=== PATIENT | male | born 1965 | race Caucasian/White ===

== ENCOUNTER 2020-09-15 09:36 | Emergency (ER) | payer MEDICARE, OTHER ==
[~2020-09-15] VITALS: Ht 185.4 cm; Wt 96.8 kg
[~2020-09-15 09:36] MED LIST: LACT10SO32 PO; PANT40TA54 PO
[2020-09-15 10:24] VITALS: BP 124/79
[2020-09-15] MEDS ORDERED: CEPH500C5 PO (12:08)
--- NOTE | 2020-09-15 12:27 | NUR ---
Patient seen and assessed by provider.
--- NOTE | 2020-09-15 12:28 | NUR ---
Patient inqiring regarding his lost wallet. Patient states that he was admitted prior and states that he does not know if his wallet came to the ED with him, but was requesting that we check. I proceeded to look through the lost in found in the ED and [facility] is currently looking through the lost and found belongings in the linen room.
--- NOTE | 2020-09-15 13:11 | NUR ---
Patients wallet was not found in linen room. Patient aware.
== END 2020-09-15 13:11 | disposition home or self-care (01) ==
LOC: ER 09:37
DX: L03.116 Cellulitis of left lower limb (principal); G89.29 Other chronic pain; Z72.89 Other problems related to lifestyle; Z59.0 Homelessness; Z79.899 Other long term (current) drug therapy
CPT/HCPCS: 99283